=== PATIENT | female | born 1955 | race Caucasian/White ===

== ENCOUNTER 2017-06-30 10:14 | Inpatient (IN) ==
--- NOTE | 2017-06-30 10:32 | Emergency Department Report ---
General Adult HPI - General Stated complaint: pos broken left foot Time Seen by Provider: 06/30/17 10:21 Source: patient Mode of arrival: ambulatory Limitations: no limitations - History of Present Illness HPI narrative: 62-year-old female presents to the emergency department with the chief complaints of two falls secondary to lightheadedness. The 1st was yesterday evening and the 2nd was earlier this morning. Patient notes that she injured her right foot during her last fall. She denies striking her head, loss of consciousness or neck pain. She denies any other injuries. She notes a moderate dull aching discomfort over the top of the right foot. No radiation. Pain increases with ambulation and improves with rest and positioning. She also noted improvement of symptoms with increasing oral hydration. She was at home when her symptoms began. Symptoms have been persistent in nature since onset. No other complaints or associated symptoms. - Related Data Home Medications Medication Instructions Recorded Confirmed Azelastine HCl [Astepro] 1 spray NS QID PRN 06/30/17 06/30/17 CALCIUM CITRATE 315mg + D 2 tab PO DAILY 06/30/17 06/30/17 [Citrical + D] Candesartan Cilexetil [Atacand] 32 mg PO DAILY 06/30/17 06/30/17 Carvedilol Phosphate [Coreg Cr] 20 mg PO DAILY 06/30/17 06/30/17 Cetirizine HCl [Zyrtec] 10 mg PO DAILY 06/30/17 06/30/17 Cholecalciferol (Vitamin D3) 2,000 unit PO DAILY 06/30/17 06/30/17 [Vitamin D3] Fluticasone HFA [Flovent Hfa 220 1 puff INH BID PRN 06/30/17 06/30/17 mcg] Fluticasone Nasal [place] [Flonase] 1 spray EA NOSTRIL BID PRN 06/30/17 06/30/17 LORazepam [Ativan] 1 mg PO PRN PRN 06/30/17 06/30/17 Cornell-3/Dha/Epa/Fish Oil [Fish Oil 3,000 mg PO DAILY 06/30/17 06/30/17 1,000 mg Softgel] Omeprazole [Prilosec] 40 mg PO ACB 06/30/17 06/30/17 Potassium Chloride 10 meq PO DAILY 06/30/17 06/30/17 Simvastatin [Zocor] 20 mg PO HS 06/30/17 06/30/17 Spironolactone [Aldactone] 25 mg PO DAILY 06/30/17 06/30/17 Ubidecarenone [Co Q-10] 200 mg PO DAILY 06/30/17 06/30/17 hydroCHLOROthiazide 25 mg PO DAILY 06/30/17 06/30/17 [Hydrochlorothiazide] Allergies Allergy/AdvReac Type Severity Reaction Status Date / Time ampicillin Allergy Verified 06/30/17 10:35 cefadroxil [From Duricef] Allergy Verified 06/30/17 10:35 chloramphenicol Allergy Verified 06/30/17 10:35 [From Chloromycetin] Penicillins Allergy Verified 06/30/17 10:35 Sulfa (Sulfonamide Allergy Verified 06/30/17 10:35 Antibiotics) Review of Systems Constitutional: Reports: fever (subjective). Denies: chills Eyes: Denies: eye pain, vision change ENT: Denies: ear pain, throat pain Cardiovascular: Denies: chest pain, palpitations Respiratory: Denies: cough, dyspnea Gastrointestinal: Denies: abdominal pain, nausea, vomiting, diarrhea Genitourinary: Denies: urgency, dysuria Musculoskeletal: Denies: back pain, arthralgia Integumentary: Denies: erythema, rash Neurological: Denies: headache, weakness, numbness, paresthesias Psychiatric: Denies: anxiety, depression Endocrine: Denies: polydipsia, polyuria Hematological/Lymphatic: Denies: easy bruising, lymphadenopathy Allergic/Immunologic: Denies: facial swelling, urticaria PFSH Patient Stated Medical History Congestive Heart Failure Yes Hypertension Yes Asthma Yes Bronchitis Yes Gastroesophageal Reflux Yes Disease Hiatal Hernia Yes Hx Urinary Tract Infection Yes Other Musculoskeletal Yes: arthritis Anesthesia Reactions Yes: nausea Clinic Medical History (Last Updated 06/30/17 @ 14:59 by EDDIE Bettencourt) History of gastroesophageal reflux (GERD) (Resolved Medical) Chronic bronchitis (Chronic Medical) Essential hypertension (Chronic Medical) Hypertension, GERD, hypertension, hyperlipidemia, anxiety Surgical History: Tonsillectomy Family History: Family History (Last Updated 06/30/17 @ 15:34 by Bettina Staples MD) Mother Intracranial hemorrhage following injury High blood pressure Coronary artery disease Father Stroke CHF (congestive heart failure) Reviewed and noncontributory - Social History Smoking status: Never smoker Substance use type: does not use Alcohol intake frequency: does not drink Physical Exam - Limitations Limitations: no limitations - General General appearance: alert, in no apparent distress - Normal Exams: Head:: Normocephalic without trauma Eyes:: Pupils are PERRLA w/ EOMI, No scleral icterus, irritation, or foreign bodies noted ENMT:: No facial trauma, nasal exudates, pharyngeal erythema, or exudates are noted Dental: No fractured, loose, or missing teeth noted Neck:: Full range of motion, without adenopathy, JVD, bruits or thyromegaly Chest/Respirations:: Clear all reyna, with good airflow, and symmetry bilaterally Cardiovascular:: Regular rate and rhythm, without murmur or gallop, Pulses 2+ all extremities, capillary refill, <2 seconds all extremities Abdomen:: Bowel sounds positive, soft, non-tender, non-distended, no hepatosplenomegaly, masses or bruits noted (NO CVAT.) Lymphatic:: No lymphadenopathy, or lymphedema noted Musculoskeletal:: No tenderness (L FOOT - FROM. Generalized tenderness to palpation over the dorsum of foot. Pulses intact. Sensation intact. Capillary refill was 2. Skin intact. No erythema. No edema. No other tenderness in the left lower extremity. All other extremities are unremarkable. ), or deformity noted (no midline tenderness or deformity to the cervical/ thoracic/lumbar spine. Pelvis - stable to compression and nontender.), good range of motion, all extremities Integumentary:: No rashes, hives, or bruising noted, hair and nails, without abnormality Neurological:: Patient is alert, and oriented, cranial nerves, motor/sensory/ cerebellar, exams w/o gross deficits, to observation Psychiatric:: Patient exhibits, appropriate attention, emotion and affect Course Vital Signs Temperature 98.5 F 06/30/17 10:15 Pulse Rate 74 06/30/17 10:15 Respiratory Rate 20 06/30/17 10:15 Blood Pressure 96/57 06/30/17 10:15 Pulse Oximetry 99 06/30/17 10:15 Temperature 102.0 F H 06/30/17 16:15 Pulse Rate 83 06/30/17 13:31 Respiratory Rate 20 06/30/17 13:31 Blood Pressure 129/65 06/30/17 13:31 Pulse Oximetry 99 06/30/17 13:31 Medical Decision Making - MDM Narrative Medical decision making narrative: Labs/imaging was discussed in detail with the patient and family and questions are answered. Patient declines offered analgesic pain medication in the emergency department. She is given normal saline 500 mL intravenously times one. Patient is ordered Cipro 400 mg IV 1 at 1243 when sepsis was considered. Patient was discussed with Dr. Staples and will be admitted to the service of the hospitalist in improved condition. No further orders from accepting physician is in agreement with the current plan of management. Patient is admitted to the hospital improved condition. She was given Cipro 400 mg iv x 1 at 1243 when labs were reviewed and sepsis was considered. She was never hypotensive in the ED and her lactate was < 4.0. She was placed in a postoperative shoe by the RN with good alignment. She was distal neurovascularly intact post-application of shoe. - Differential Diagnosis sprain, strain, fracture, dislocation - Lab Data Result diagrams: 06/30/17 11:13 06/30/17 11:13 Lab Results 06/30/17 06/30/17 06/30/17 Range/Units 11:13 11:13 11:13 WBC 18.5 H (4.5-11.0) T/MM3 RBC 3.36 L (4.00-5.20) M/MM3 Hgb 10.1 L (12-16) GM/DL Hct 29.7 L (36-46) % MCV 88.4 (80-100) UM3 MCH 30.1 (26-34) UUG MCHC 34.0 (31-37) GM/DL RDW Std Deviation 38.4 (36.9-50.2) FL Plt Count 211 (130-400) T/MM3 MPV 9.0 L (9.4-12.4) UM3 Immature Gran % (Auto) Not performed Neut % (Auto) Not performed Lymph % (Auto) Not performed Collier % (Auto) Not performed Eos % (Auto) Not performed Baso % (Auto) Not performed Neut # (Auto) Not performed Lymph # (Auto) Not performed Collier # (Auto) Not performed Eos # (Auto) Not performed Baso # (Auto) Not performed Abs Immat Gran (auto) Not performed Neutrophils % (Manual) 81.0 H (33-66) % Band Neutrophils % 4.0 (0-6) % Lymphocytes % (Manual) 7.0 L (23-45) % Monocytes % (Manual) 8.0 (0-9.0) % Neutrophils # (Manual) 15.0 H (1.8-7.7) T/MM3 Band Neutrophils # 0.7 T/MM3 Lymphocytes # (Manual) 1.3 (1-4.8) T/MM3 Monocytes # (Manual) 1.5 H (0-0.8) T/MM3 Poikilocytosis 1+ RBC Morph Comment Abnormal Turbidity < 20 (0-20) Sodium 124 L (134-144) MEQ/L Potassium 5.0 (3.6-5) MEQ/L Chloride 87 L (98-107) MEQ/L Carbon Dioxide 23 (22-30) MEQ/L Anion Gap 14 (5-15) meq/L BUN 21.0 H (7-17) MG/DL Creatinine 1.5 H (0.7-1.2) mg/dL GFR Calculation 35 BUN/Creatinine Ratio 14 (6-26) RATIO Glucose 151 H (65-110) MG/DL Calculated Osmolality 246 L (261-280) MOSM/KG Calcium 9.0 (8.4-10.2) MG/DL Icterus Index < 2 (0-7) Troponin I < 0.012 (0-0.12) ng/ml Plasma Lactate 2.6 H (0.6-2.2) MMOL/L Procalcitonin NG/ML Specimen Hemolysis < 15 (0-25) Ur Collection Type Urine Color (YELLOW) Urine Clarity Urine pH (5.0-8.0) Ur Specific [place] (1.015-1.025) Urine Protein (NEGATIVE) Urine Glucose (UA) (NEGATIVE) Urine Ketones (NEGATIVE) Urine Occult Blood (NEGATIVE) Urine Nitrate (NEGATIVE) Urine Bilirubin (NEGATIVE) Urine Urobilinogen (NORMAL) EU/DL Ur Leukocyte Esterase (NEGATIVE) Urine RBC (0-3) /HPF Urine WBC (0-5) /HPF Urine WBC Clumps Ur Squamous Epith Cells Urine Bacteria (NEGATIVE) Ur Culture Indicated? 06/30/17 06/30/17 Range/Units 11:13 12:04 WBC (4.5-11.0) T/MM3 RBC (4.00-5.20) M/MM3 Hgb (12-16) GM/DL Hct (36-46) % MCV (80-100) UM3 MCH (26-34) UUG MCHC (31-37) GM/DL RDW Std Deviation (36.9-50.2) FL Plt Count (130-400) T/MM3 MPV (9.4-12.4) UM3 Immature Gran % (Auto) Neut % (Auto) Lymph % (Auto) Collier % (Auto) Eos % (Auto) Baso % (Auto) Neut # (Auto) Lymph # (Auto) Collier # (Auto) Eos # (Auto) Baso # (Auto) Abs Immat Gran (auto) Neutrophils % (Manual) (33-66) % Band Neutrophils % (0-6) % Lymphocytes % (Manual) (23-45) % Monocytes % (Manual) (0-9.0) % Neutrophils # (Manual) (1.8-7.7) T/MM3 Band Neutrophils # T/MM3 Lymphocytes # (Manual) (1-4.8) T/MM3 Monocytes # (Manual) (0-0.8) T/MM3 Poikilocytosis RBC Morph Comment Turbidity (0-20) Sodium (134-144) MEQ/L Potassium (3.6-5) MEQ/L Chloride (98-107) MEQ/L Carbon Dioxide (22-30) MEQ/L Anion Gap (5-15) meq/L BUN (7-17) MG/DL Creatinine (0.7-1.2) mg/dL GFR Calculation BUN/Creatinine Ratio (6-26) RATIO Glucose (65-110) MG/DL Calculated Osmolality (261-280) MOSM/KG Calcium (8.4-10.2) MG/DL Icterus Index (0-7) Troponin I (0-0.12) ng/ml Plasma Lactate (0.6-2.2) MMOL/L Procalcitonin 8.00 H* NG/ML Specimen Hemolysis (0-25) Ur Collection Type Urine, void-cc/notcc Urine Color Yellow (YELLOW) Urine Clarity Sl cloudy Urine pH 5.5 (5.0-8.0) Ur Specific [place] 1.015 (1.015-1.025) Urine Protein 1+ A (NEGATIVE) Urine Glucose (UA) Negative (NEGATIVE) Urine Ketones Negative (NEGATIVE) Urine Occult Blood Negative (NEGATIVE) Urine Nitrate Negative (NEGATIVE) Urine Bilirubin Negative (NEGATIVE) Urine Urobilinogen 0.2 (NORMAL) EU/DL Ur Leukocyte Esterase 2+ A (NEGATIVE) Urine RBC None seen (0-3) /HPF Urine WBC 20-30 H (0-5) /HPF Urine WBC Clumps Moderate H Ur Squamous Epith Cells 0-5 Urine Bacteria 3+ H (NEGATIVE) Ur Culture Indicated? Cult reflexed &setup - Radiology Data Radiology results reviewed: Yes: I reviewed the patient's radiology results. L FOOT X-ray - Impression: Closed posttraumatic fracture of the fifth toe proximal phalanx. CXR - No acute processes. - EKG Data EKG #1 EKG results narrative: Sinus rhythm. 72 beat per minute. No STEMI. Normal EKG Disposition Clinical Impression: UTI (urinary tract infection) Qualifiers: Urinary tract infection type: acute cystitis Hematuria presence: without hematuria Qualified Code(s): N30.00 - Acute cystitis without hematuria Disposition: 02 To [facility] Condition: Stable Time of Disposition: 12:30 (Admit. Dr. Staples. ) - Seen By: physician
--- OUTSIDE RECORDS SUMMARY | 2017-06-30 10:36 | External Medical Summary | Continuity of Care Document ---
:1955 Author Organization [facility]. Address [address] [place] [address] Care Team Providers Name Role Phone DENISE BOYER Primary Care Physician Insurance Providers Payer Name Policy Number Subscriber Name Relationship [id number] SUSANNAH [employer] Chief Complaint and Reason for Visit Reason for Visit SURGERY TO INPATIENT Problems Active Surgical Problems Problem Onset Date Recorded Date Status Status post Shantel fundoplication Unknown 10/02/16 Active Medications Current Home Medications Medication Dose Units Route Directions Days/Qty Instructions Start Date Albuterol (ProAir 2 PUFF INHALATION Every four HFA) 90 MCG/PUFF hours as INHALER needed as needed for SHORTNESS OF BREATH Ascorbic Acid 1,000 MG Once a day (Vitamin C) 1,000 MG TABLET Azelastine (Astelin 1 SPRAY NASAL Twice daily Nasal [place]) 137 MCG/0.137 ML SPRAY.PUMP Calcium 2 TAB By Mouth Once a day Citrate/Vitamin D (Calcium Citrate + D 315 Mg-200 Iu) 1 TAB TABLET Candesartan (Atacand) 32 MG By Mouth Daily at 32 MG TABLET bedtime Carvedilol CR (Coreg 20 MG By Mouth Daily at CR) 20 MG CAPSULE bedtime Cetirizine (ZyrTEC) 10 MG By Mouth Daily at 10 MG TABLET bedtime Cholecalciferol 2,000 UNITS Once a day (Vitamin D3) 2,000 UNITS CAPSULE Coenzyme Q10 (Co 200 MG By Mouth Once a day Q-10) 200 MG SGL Cyanocobalamin 5,000 MCG By Mouth Once a day (Vitamin B12) 5,000 MCG TAB Diclofenac (Voltaren 1 APPLIC TOPICAL Four times a APPLIES TO 1% Topical Gel) 100 day BACK AND GM TUBE KNEES Fluticasone 1 SPRAY NASAL Once a day 1 Propionate (Flonase [place]/Nostril Allergy Relief [OTC]) 50 MCG/SPRAY BOTTLE Fluticasone 1 PUFF INHALATION Twice daily Propionate (Flovent HFA) 220 MCG/ACTUATION INHALER LORazepam (Ativan) 1 0.5 TAB By Mouth BID PRN as MG TABLET needed for ANXIETY Lactobacillus 1 EACH Once a day Acidophilus (Acidophilus) 1 EACH CAPSULE Magnesium Oxide 500 MG By Mouth Once a day (Magnesium) 500 MG TAB Multivitamin (Multi 1 TAB By Mouth Once a day Vitamins) 1 TAB TABLET [id number] Ethyl 1,000 MG By Mouth Three times Esters (Fish Oil) daily 1,000 MG CAPSULE Omeprazole (PriLOSEC) 40 MG By Mouth Once a day 20 MG CAPSULE Potassium Chloride 10 MEQ Once a day (K-Tab) 10 MEQ TABLET.SA Pyridoxine (Vitamin 100 MG Once a day B-6) 100 MG TABLET Simvastatin (Zocor) 20 MG By Mouth Daily at 20 MG TABLET bedtime Spironolactone 25 MG By Mouth Daily at (Aldactone) 25 MG bedtime TABLET hydroCHLOROthiazide 25 MG By Mouth Daily at (Hydrodiuril) 25 MG bedtime TABLET Past Home Medications Medication Directions Ordered Status Omeprazole (Prilosec Otc) 20 Mg Tablet Tablet, 20 Mg Twice daily Unknown Discontinued Family History Relationship Name Date of Condition Age ( Cause Age ( Age Gender Recorded At of At Date/Time Onset ) ) FATHER Family history of 30-40 M 10/01/16 cerebrovascular 2126 accident FATHER Family history of M 10/01/16 congestive heart 2126 failure MOTHER Family history of F 10/01/16 hypertension 2126 Social History Problem Response Recorded Date 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 Query Response Start Date Stop Date Smoking status: Never smoker Hospital Discharge Instructions Plan of Care Problem: Pain Goal: minimize pain Instructions: Take pain meds as prescribed Physician Instructions Follow up appointment in 1 week Activity Guidelines May shower, No lifting 20 lbs or more, No pushing 20 lbs or more, No pulling 20 lbs or more Discharge Diet Pureed Plan of Care Discharge Date 10/02/16 Disposition 01-HOME, SELF-CARE,AS[facility] LIVING Instructions/Education Provided Medication Safety Oxycodone Fundoplication, Laparoscopic Surgery (DC) Hiatal Hernia (DC) Pureed Diet Prescriptions See Medications Section Care Plan and Goals See Discharge Instructions section Functional Status Query Response Date Recorded Paralysis: N October 02, 2016 7:32am Steady Gait: Y October 02, 2016 7:32am Weakness: N October 02, 2016 7:32am Hand Bioinformatics Assistant Equal: Y October 02, 2016 7:32am Contractures: N October 02, 2016 7:32am Alert: Y October 02, 2016 7:32am Oriented x4: Y October 02, 2016 7:32am Disoriented/Confused: N October 02, 2016 7:32am Drowsy: N October 02, 2016 7:32am Lethargic: N October 02, 2016 7:32am Unresponsive: N October 02, 2016 7:32am Allergies, Adverse Reactions, Alerts Allergen Type Severity Reaction Status Last Updated Penicillins Allergy Severe Active 10/01/16 Sulfa (Sulfonamide Antibiotics) Allergy Unknown Active 10/01/16 ampicillin Allergy Unknown Active 10/01/16 cefadroxil Allergy Unknown Active 10/01/16 CHLOROMYST OPTHA ANDREW-HÉCTOR Allergy Unknown Active 10/01/16 Immunizations No Known History of Immunizations. Vital Signs Vital Reading Collection Date/Time Result Blood Pressure 10/02/16 1:14pm 129/78 Blood Pressure Source 10/02/16 1:14pm Sitting Temperature 10/02/16 1:14pm 97.2 F Temperature Source 10/02/16 1:14pm Oral Respiratory Rate 10/02/16 1:14pm 18 Pulse Rate 10/02/16 1:14pm 67 Pulse Location 10/02/16 1:14pm Dynamap Bedside Pulse Oximetry 10/02/16 1:14pm 98 Height 10/01/16 4:32pm 5 ft 7.01 in Height 10/01/16 4:32pm 170.2 cm Weight 10/01/16 4:32pm 177 lb Weight 10/01/16 4:32pm 80.3 kg Body Mass Index 10/01/16 4:32pm 27.7 kg/m2 Results No known relevant diagnostic tests, laboratory data and/or discharge summary. Procedures No Known History of Procedures. Encounters Encounter Location Arrival/Admit Date Discharge/Depart Date Attending Provider Discharged [facility] 10/01/16 6:30am 10/02/16 5:36pm [facility]
[2017-06-30] MEDS ORDERED: SALINE FLUSH 10ml SYRINGE IVF PRN (10:48)
--- NOTE | 2017-06-30 11:09 | XRay Report ---
Indication: Injury, Pain PROCEDURE: XR foot LT min 3V: Encounter: Initial Comparison: None Findings: Mildly displaced intra-articular fracture of the base of the fifth toe proximal phalanx. No additional acute fracture. No dislocation. Impression: Closed posttraumatic fracture of the fifth toe proximal phalanx. .
--- NOTE | 2017-06-30 12:18 | XRay Report ---
Indication: light-headed PROCEDURE: XR chest 1V: Encounter: Initial Comparison: None FINDINGS: The lungs are clear. There is no abnormal airspace opacity, pleural effusion or pneumothorax identified. The heart size, pulmonary vasculature and mediastinum are within normal limits. No significant skeletal abnormality is seen. IMPRESSION: No acute cardiopulmonary abnormality. .
[2017-06-30] MEDS: ACETAMINOPHEN 325 MG TABLET PO PRN ×2 (14:03→21:12)
--- NOTE | 2017-06-30 14:08 | History & Physical Report ---
History of Present Illness Date: 06/30/17 Chief complaint: chills, fever HPI: Patient is a 62 yo female who presents to ER today after sustaining 2 falls from being lightheaded and hurting her L foot. She states she feels like she has "the flu." Sxs started 2 days ago with aching and fever and nausea. She's had no vomiting or diarrhea. On admission to ER, she was found to have a WBC of 18.5, lactate of 2.6 and procal of 8. CXR was neg. UA showed 2+ leuks and 3 + bacteria. Xray of the L foot also showed an intra-articular fracture for which she was placed in a cast shoe in ER. She felt like she was just dehydrated due to the "flu" and taking 2 diuretics. She has h/o UTI's in past, but never pyelonephritis or urosepsis. She hasn't been treated with antibiotics in the past 3+ mos. THinks she may have been on Zithromax or Levquin in Dec for her chronic bronchitis. She's had no dysuria, hematuria or frequency. She does note she had some hesitancy with starting her urine stream. Last BM was this morning. She states she is hungry now and would like to eat. Last Tylenol at 1230am. Review of Systems All systems PM: 10-point ROS was reviewed, no additional remarkable complaints except Review of systems: Positive for nausea (but not presently), shaking chills, lightheaded when up Past Medical History Medical History: Medical History (Last Updated 06/30/17 @ 14:59 by EDDIE Bettencourt) History of gastroesophageal reflux (GERD) (Resolved) Chronic bronchitis (Chronic) Essential hypertension (Chronic) Surgical History: Tonsillectomy, Shantel fundoplication, L knee arthroscope for meniscal tear Family History: Father - of CVA. CHF Mother - of intracranial bleed following a fall while on Plavix. CAD ( CABG and stents), HTN Family History: As Above - Social History Smoking status: Never smoker Substance use type: does not use Alcohol intake frequency: does not drink Housing: house Household members: spouse Current occupational status: retired Social history: Patient lives in her home here in [place] during the week and cares for her grandchildren. She and her still own a house in [place] and she goes back there on the weekends. SHe has no local PCP. Sees Miriam Dale APRN at [facility] in . Medications Home Medications Medication Instructions Recorded Confirmed Type Azelastine HCl [Astepro] 1 spray NS QID PRN 06/30/17 06/30/17 History CALCIUM CITRATE 315mg + D 2 tab PO DAILY 06/30/17 06/30/17 History [Citrical + D] Candesartan Cilexetil [Atacand] 32 mg PO DAILY 06/30/17 06/30/17 History Carvedilol Phosphate [Coreg Cr] 20 mg PO DAILY 06/30/17 06/30/17 History Cetirizine HCl [Zyrtec] 10 mg PO DAILY 06/30/17 06/30/17 History Cholecalciferol (Vitamin D3) 2,000 unit PO DAILY 06/30/17 06/30/17 History [Vitamin D3] Fluticasone HFA [Flovent Hfa 220 1 puff INH BID PRN 06/30/17 06/30/17 History mcg] Fluticasone Nasal [place] [Flonase] 1 spray EA NOSTRIL BID PRN 06/30/17 06/30/17 History LORazepam [Ativan] 1 mg PO PRN PRN 06/30/17 06/30/17 History [place]-3/Dha/Epa/Fish Oil [Fish Oil 3,000 mg PO DAILY 06/30/17 06/30/17 History 1,000 mg Softgel] Omeprazole [Prilosec] 40 mg PO ACB 06/30/17 06/30/17 History Potassium Chloride 10 meq PO DAILY 06/30/17 06/30/17 History Simvastatin [Zocor] 20 mg PO HS 06/30/17 06/30/17 History Spironolactone [Aldactone] 25 mg PO DAILY 06/30/17 06/30/17 History Ubidecarenone [Co Q-10] 200 mg PO DAILY 06/30/17 06/30/17 History hydroCHLOROthiazide 25 mg PO DAILY 06/30/17 06/30/17 History [Hydrochlorothiazide] Allergies Allergy/AdvReac Type Severity Reaction Status Date / Time ampicillin Allergy Verified 06/30/17 10:35 cefadroxil [From Duricef] Allergy Verified 06/30/17 10:35 chloramphenicol Allergy Verified 06/30/17 10:35 [From Chloromycetin] Penicillins Allergy Verified 06/30/17 10:35 Sulfa (Sulfonamide Allergy Verified 06/30/17 10:35 Antibiotics) Exam Vital Signs: Temperature 97.7 F 06/30/17 13:31 Pulse Rate 83 06/30/17 13:31 Respiratory Rate 20 06/30/17 13:31 Blood Pressure 129/65 06/30/17 13:31 Pulse Oximetry 99 06/30/17 13:31 Height/Weight/BMI: Height 1.7 m Weight 77.6 kg Body Mass Index 26.8 - Constitutional Present: no acute distress, well nourished, well developed, cooperative, other ( pt shivers throughout interview and exam) - Routine HEENT Exam Head: Present: normocephalic, atraumatic Eye: Present: EOMI, PERRL ENT: Present: mucous membranes moist, oropharynx clear - Routine Neck Exam Present: supple. Absent: lymphadenopathy, thyromegaly - Routine Respiratory Exam Present: CTA bilaterally. Absent: wheezes - Routine Cardiovascular Exam Present: RRR, no murmur - Routine Abdominal Exam Present: soft, normoactive bowel sounds. Absent: tenderness, distended Comments: NO flank pain - Routine Extremities Exam Present: no edema, normal capillary refill Comments: L foot is in cast shoe. She has sensation in the toes. - Routine Skin Exam Present: dry, warm - Routine Neurological Exam Present: alert, oriented X3 CN III-XII intact - Routine Psychiatric Exam Present: normal affect, cooperative Results - Labs CBC & Chem 7: 06/30/17 11:13 06/30/17 11:13 Labs: Laboratory Tests 06/30/17 06/30/17 06/30/17 11:13 11:13 11:13 Troponin I < 0.012 Plasma Lactate 2.6 H Procalcitonin 8.00 H* Urinalysis 06/30/17 12:04 Ur Collection Type Urine, void-cc/notcc Urine Color Yellow Urine Clarity Sl cloudy Urine pH 5.5 Ur Specific [place] 1.015 Urine Protein 1+ A Urine Glucose (UA) Negative Urine Ketones Negative Urine Occult Blood Negative Urine Nitrate Negative Urine Bilirubin Negative Urine Urobilinogen 0.2 Ur Leukocyte Esterase 2+ A Urine RBC None seen Urine WBC 20-30 H Urine WBC Clumps Moderate H Ur Squamous Epith Cells 0-5 Urine Bacteria 3+ H - Imaging and Cardiology Chest x-ray Additional comments: Date of Exam: 06/30/17 Indication: light-headed PROCEDURE: XR chest 1V: FINDINGS: The lungs are clear. There is no abnormal airspace opacity, pleural effusion or pneumothorax identified. The heart size, pulmonary vasculature and mediastinum are within normal limits. No significant skeletal abnormality is seen. IMPRESSION: No acute cardiopulmonary abnormality. L foot xray Additional comments: Date of Exam: 06/30/17 Indication: Injury, Pain PROCEDURE: XR foot LT min 3V: Findings: Mildly displaced intra-articular fracture of the base of the fifth toe proximal phalanx. No additional acute fracture. No dislocation. Impression: Closed posttraumatic fracture of the fifth toe proximal phalanx. Assessment and Plan (1) Severe sepsis Current visit: Yes Status: Acute Assessment and Plan: Assessment Urosepsis (SIRS: Tmax 102 -per patient, WBC 18.5. Lactate 2.6. Urinary source of infection.) Mildly displaced intra-articular fracture base of 5th toe (proximal phalanx) LASHAUN (Cr 1.5, BUN 21 - on admission) Hypotensive (96/57 on admission) Hyponatremia - POA 124 Normocytic anemia - POA (Hgb 10.1) Nausea - POA HTN Chronic bronchitis H/o GERD (s/p Shantel fundoplication) Plan Admit, OBS Cipro IV given in ER. Repeat Cipro again this evening and then start Levaquin 750mg IV qd in the am for urinary coverage. Urine culture pending. Repeat lactate ordered. Lactobacillus given her antibiotic tx and pt reports she usually has diarrhea if she doesn't take her probiotics routinely. NS 500cc bolus given in ER. Bolus another 500cc then run at 125cc's/hr for hydration, hypotension, sepsis and LASHAUN. Ice to toe fracture as needed. Wear cast shoe when ambulating. Zofran prn nausea. Tylenol prn fever, pain. Hold Atacand, Coreg, HCTZ, spironolactone, potassium and Zocor d/t hypotension and hyponatremia. Monitor BP's closely. Repeat CBC and BMP in am to follow leukocytosis, renal function and electrolytes. Care to return to Miriam Dale APRN at [facility] in on dismissal. DVT Prophylaxis: SCD's, Lovenox Resuscitation Status: Full Code - Physician Narrative Physician: Bettina Staples MD Narrative: Date: 06/30/17 Time: 1540 I have independently evaluated and examined this patient. I reviewed the chart, the patient's history, and the [employer] SPECIALIST/PA's documented findings as above. We discussed and formulated the assessment and plan as above with additions as below: Mrs. Rios was seen with her daughter at bedside. She describes having the "flu " for about 3 days with generalized muscle aches and temperatures up to 102. There was no accompanying dyspnea, cough, nausea/vomiting, or diarrhea. She describes minor discomfort urinating but no frequency or urgency. She has had progressive lightheadedness resulting in fall which triggered ER evaluation. Patient had some difficulty providing history when I evaluated her and daughter indicated that she currently is having trouble tracking which was not clear earlier today. Mildly confused. Neck is supple, oropharynx clear, conjunctiva clear. Patient warm to palpation- temperature rechecked 102.9 Respirations nonlabored, good airflow, breath sounds clear Regular cardiac rhythm, S1-S2 Abdomen soft, nontender, no discomfort on deep palpation in the right upper quadrant Mild discomfort on percussion over the left flank Skin without rash Sodium 124-patient reports chronic difficulty managing sodium and that she takes sodium tablets in conjunction with HCTZ. Also reports difficulty managing her potassium at times. Leukocytosis as noted, creatinine 1.5 Chest x-ray reviewed by myself-NAD. Foot x-ray reported to show a mildly displaced intra-articular fracture at the base of the fifth toe proximal phalanx. In addition to previously outlined plans will obtain renal CT to better evaluate kidneys/assess possible pyelonephritis. Symptomatic hyponatremia with generalized weakness/fatigue-best managed by discontinuing hydrochlorothiazide and reassessing blood pressure control when clinically stable. Check sodium in 6 hours. Leonid this patient's alternate decision maker. Case discussed with Dr. Santillan prior to admission. Sepsis Assessment - Evaluation SIRS Criteria: temperature > 100.9, WBC > 12,000 Severe Sepsis: lactate > 2.0 mg/dL Hospital Course Summary Disclaimer: The visit summary below is not to be considered part of the above Progress Note. Hospital Course: 06/30/17 Admit, OBS Cipro IV given in ER. Repeat Cipro again this evening and then start Levaquin 750mg IV qd in the am for urinary coverage. Lactobacillus given her antibiotic tx and pt reports she usually has diarrhea if she doesn't take her probiotics routinely. NS 500cc bolus given in ER. Bolus another 500cc then run at 125cc's/hr for hydration, hypotension, sepsis and LASHAUN. Obtain renal CT to look for evidence of pyelonephritis. Ice to toe fracture as needed. Wear cast shoe when ambulating. Zofran prn nausea. Tylenol prn fever, pain. Hold Atacand, Coreg, HCTZ, spironolactone, potassium and Zocor d/t hypotension and hyponatremia. Monitor BP's closely. Repeat CBC and BMP in am to follow leukocytosis, renal function and electrolytes. Care to return to Miriam Dale APRN at [facility] in on dismissal.
[2017-06-30] MEDS ORDERED: SALINE FLUSH 10ml SYRINGE IV PRN (14:14)
[2017-06-30] MEDS ORDERED: ONDANSETRON 4 MG/2 ML INJECTION IVP PRN (14:14)
[2017-06-30] MEDS ORDERED: NS 500 ML IV ONE (14:41)
[2017-06-30] MEDS ORDERED: FLUTICASONE 220 MCG ORAL INH PRN (14:45)
[2017-06-30] MEDS ORDERED: LORazepam 1 MG TABLET PO PRN (14:45)
[2017-06-30] MEDS ORDERED: FLUTICASONE NASAL SPRAY 50mcg EA NOSTRIL PRN (14:45)
[2017-06-30] MEDS: NS 1,000 ML IV SCH ×3 (14:52→22:47)
[2017-06-30] MEDS ORDERED: IBUPROFEN 200 MG TABLET PO ONE (15:23)
[2017-06-30] MEDS: LACTOBACILLUS (15B cfu) CAPSULE PO SCH (17:20)
--- NOTE | 2017-06-30 18:00 | CT Scan Report ---
Indication: fever, possible pyelo-L side clinically PROCEDURE: CT renal wo con (stone jairo): Encounter: Initial Comparison: None Technique: Axial CT images were performed through the abdomen and pelvis without intravenous contrast. Coronal and sagittal two-dimensional reformats. Automated Exposure Control and Iterative Reconstruction dose reducing techniques were utilized. Findings: Minimal atelectasis in the lung bases. Unenhanced contours of the liver are grossly normal. The gallbladder is unremarkable. The spleen, pancreas and adrenal glands are within normal limits. The right kidney is normal. No right-sided renal or ureteral stones. The bladder appears normal. Small fat-containing right inguinal hernia. Uterus contains a prominent calcified fibroid. Small amount of free pelvic fluid. No evidence of a bowel obstruction. Extensive left colonic diverticulosis without acute inflammation to suggest diverticulitis. The appendix is normal. Bone windows show degenerative changes in the lumbar spine without lytic or blastic osseous lesion. The left kidney shows perinephric stranding, asymmetric to the right side with inflammatory change around the left hilum and renal pelvis with probable urothelial thickening. No left-sided ureteral stones appreciated. Impression: Asymmetric left-sided perinephric and periureteral stranding compatible with pyelonephritis. .
[2017-07-01] MEDS: NS 1,000 ML IV SCH ×4 (05:16→22:55)
[2017-07-01] MEDS: ACETAMINOPHEN 325 MG TABLET PO PRN ×3 (05:25→20:18)
[2017-07-01] MEDS: OMEPRAZOLE 20 MG CAPSULE PO SCH (06:15)
[2017-07-01] MEDS ORDERED: LEVOFLOXACIN PB 750 MG/150 ML BAG IV SCH (08:00)
[2017-07-01] MEDS: LACTOBACILLUS (15B cfu) CAPSULE PO SCH ×3 (09:41→17:02)
[2017-07-01] MEDS: CALCIUM CITRATE 315mg + VIT.D 250units TABLET PO SCH (09:42)
[2017-07-01] MEDS: CETIRIZINE 10 MG TABLET PO SCH (09:42)
[2017-07-01] MEDS: ENOXAPARIN 40 MG/0.4 ML INJECTION SQ SCH (09:43)
[2017-07-01] MEDS: OMEGA-3 ACID ESTERS 1 GM CAPSULE PO SCH (09:43)
[2017-07-01] MEDS ORDERED: ALBUTEROL 2.5mg/3ml (0.083%) NEB AEROSOL PRN (11:09)
--- NOTE | 2017-07-01 13:55 | Progress Note ---
- Date 07/01/17 Subjective: Mrs. Rios reports that overall she feels better. Her primary concern is that she cannot walk comfortably and that when she puts weight on her left heel she has pain on the dorsal left mid foot. She's concerned that she has another fracture that wasn't identified yesterday. She denies dysuria today and has been voiding regularly, she denies lightheadedness when she is up although systolic pressure continues to drop into the mid or upper 80s. She reports no dyspnea, cough, or nausea and reports having a bowel movement this morning. She has minor back pain which is chronic. Her appetite has not returned to normal. Objective Vital signs: Temperature 97.8 F 07/01/17 07:52 Pulse Rate 82 07/01/17 10:34 Respiratory Rate 16 07/01/17 07:52 Blood Pressure 83/55 07/01/17 10:34 Pulse Oximetry 99 07/01/17 07:52 I/O 3900/1000 NAD, alert EOMI, conjunctiva clear, sclera anicteric, oropharynx clear Respirations nonlabored, good airflow, breath sounds clear Regular rhythm, S1-S2 Abdomen soft, nontender, bowel sounds present; mild left CVAT Trace edema dorsal left foot, generalized tenderness to palpation along the dorsal left foot Skin without rash Moving all extremities well Height/Weight/BMI: Weight 82.2 kg Results - Labs CBC & Chem 7: 07/01/17 04:05 07/01/17 04:05 Labs: Urine sodium 17, urine creatinine 102.7; urine osmolality pending Fractional excretion sodium 0.21% Microbiology Results: Blood cultures 2 negative after 1 day Urine culture > 100,000 colonies Escherichia coli, sensitivities pending - Imaging and Cardiology renal CT Status: image reviewed by me (left perinephric and periureteral stranding consistent with pyelonephritis; lungs are clear, gallbladder unremarkable. Radiology incidentally reported a small right inguinal hernia, calcified uterine fibroid, and extensive left diverticulosis without diverticulitis.) Assessment and Plan (1) Severe sepsis Current visit: Yes Status: Acute Assessment and Plan: Assessment Severe sepsis (SIRS: Tmax 102 -per patient, WBC 18.5. Lactate 2.6. Urinary source of infection.) UTI/pyelonephritis-Escherichia coli Mildly displaced intra-articular fracture base of 5th toe (proximal phalanx) LASHAUN (Cr 1.5, BUN 21 - on admission) Hypotension (96/57 on admission) Hyponatremia - POA 124 Normocytic anemia - POA (Hgb 10.1) Nausea - POA HTN Chronic bronchitis h/o GERD (s/p Shantel fundoplication) Plan Converted from Cipro to levofloxacillin for treatment of UTI/pyelonephritis. Escherichia coli on urine culture, sensitivities pending. Persistent hyponatremia, urine studies consistent with dehydration in conjunction with past hydrochlorothiazide use. Continue volume replacement with normal saline; repeat sodium pending currently. Mild orthostasis persists-continue volume replacement; multiple blood pressure medications on hold. Hemoglobin down slightly with hydration, continue to monitor. Creatinine unchanged, 1.5-fractional excretion consistent with dehydration. PT consult; x-ray of left foot reviewed-no indication of metatarsal fracture. DVT Prophylaxis: Lovenox Resuscitation Status: Full Code - Physician Narrative Narrative: Date: 07/01/17 Time: 1352 Hospital Course Summary Disclaimer: The visit summary below is not to be considered part of the above Progress Note. Hospital Course: 06/30/17 Admit, OBS Cipro IV given in ER. Repeat Cipro again this evening and then start Levaquin 750mg IV qd in the am for urinary coverage. Lactobacillus given her antibiotic tx and pt reports she usually has diarrhea if she doesn't take her probiotics routinely. NS 500cc bolus given in ER. Bolus another 500cc then run at 125cc's/hr for hydration, hypotension, sepsis and LASHAUN. Obtain renal CT to look for evidence of pyelonephritis. Ice to toe fracture as needed. Wear cast shoe when ambulating. Zofran prn nausea. Tylenol prn fever, pain. Hold Atacand, Coreg, HCTZ, spironolactone, potassium and Zocor d/t hypotension and hyponatremia. Monitor BP's closely. Care to return to Miriam Dale APRN at [facility] in on dismissal. 07/01/17 Converted from Cipro to levofloxacillin for treatment of UTI/pyelonephritis. Escherichia coli in urine culture, sensitivities pending. WBC slightly improved. Persistent hyponatremia, urine studies consistent with dehydration in conjunction with past hydrochlorothiazide use. Continue volume replacement with normal saline; repeat sodium pending currently. Mild orthostasis persists-continue volume replacement; multiple blood pressure medications on hold. Hemoglobin down slightly with hydration, continue to monitor. PT consult; x-ray of left foot reviewed-no indication of metatarsal fracture.
[2017-07-01 15:28] VITALS: BMI 28.3
[2017-07-01] MEDS: SODIUM CHLORIDE 1 GM TABLET PO SCH ×2 (17:02→20:18)
[2017-07-02] MEDS: ACETAMINOPHEN 325 MG TABLET PO PRN ×4 (02:03→20:59)
[2017-07-02] MEDS: OMEPRAZOLE 20 MG CAPSULE PO SCH (05:49)
[2017-07-02] MEDS: DICLOFENAC 1% TOP GEL 100gm TP PRN ×2 (05:50→20:59)
[2017-07-02] MEDS: AZELASTINE 0.1% NASAL SPRAY NAS PRN ×2 (05:50→20:59)
[2017-07-02] MEDS: NS 1,000 ML IV SCH ×2 (07:34→17:52)
[2017-07-02] MEDS: LACTOBACILLUS (15B cfu) CAPSULE PO SCH ×3 (09:20→17:51)
[2017-07-02] MEDS: CALCIUM CITRATE 315mg + VIT.D 250units TABLET PO SCH (09:20)
[2017-07-02] MEDS: OMEGA-3 ACID ESTERS 1 GM CAPSULE PO SCH (09:20)
[2017-07-02] MEDS: SODIUM CHLORIDE 1 GM TABLET PO SCH ×4 (09:21→21:01)
[2017-07-02] MEDS: CETIRIZINE 10 MG TABLET PO SCH (09:21)
[2017-07-02] MEDS: ENOXAPARIN 40 MG/0.4 ML INJECTION SQ SCH (09:22)
--- NOTE | 2017-07-02 11:43 | CT Scan Report ---
Indication: possible cuneiform fracture PROCEDURE: CT foot LT wo con: Encounter: Initial Comparison: Radiographs dated June 30, 2017 Technique: Axial CT images were performed through the left foot without intravenous contrast. Coronal and sagittal two-dimensional reformats. Automated Exposure Control and Iterative Reconstruction dose reducing techniques were utilized. Findings: The intra-articular fracture of the fifth toe proximal phalanx is confirmed. The medial cuneiform fracture is confirmed with mild comminution and minimal displacement. The second metatarsal base appears normally aligned. There is a nondisplaced intra-articular fracture of the fourth metatarsal base as well. Tiny nondisplaced fracture of the cuboid bone seen on coronal image #37. Tiny avulsion fracture noted from the distal aspect of the lateral cuneiform bone on coronal image #29. Probable tiny avulsion fracture from the third metatarsal base on coronal image #37 with a 2 mm bony fragment seen. Tiny 1 to 2 mm bony density inferior to the second metatarsal base best seen on axial image #53 and coronal image #27 could represent a tiny avulsion fracture as well. Small similar appearing avulsion fracture from the third metatarsal base seen on axial image #52. Tiny additional chip fracture involving the dorsal aspect of the third metatarsal base on axial image #50 and coronal image #23. Impression: Multiple midfoot fractures, the majority of which are tiny chip or avulsion fractures with minimal displacement. Fractures involve the second, third and fourth metatarsal bases along with the medial and lateral cuneiform and cuboid bones. Fifth toe proximal phalangeal fracture is also noted. There is no visible offset seen at the Lisfranc joint although a Lisfranc ligament injury cannot be entirely excluded on the basis of CT. .
--- NOTE | 2017-07-02 16:07 | Orthopedic Consult Note ---
Orthopedic Consultation HPI - Consultation Info Consult Date: 07/02/17 Attending Physician: Bettina Staples MD - History of Present Illness Mrs. Rios fell in her bedroom 06/30/17, states she felt lightheaded. Unsure how she landed and unsure if had LOC. States she got up and she had mild left foot pain, walked down the [place] and felt lightheaded again and fell. After second fall her she states she was unable to ambulate due to pain of left foot. She was taken by EMS to [facility]. She was found to have Urosepsis, hyponatremia (Na 124), and hypotensive. Xray of left foot showed nondisplaced proximal 5th phalangeal fracture. She was placed in post operative shoe. She continued to complain of left foot pain and swelling. Dr. Dexter was consulted today. CT scan of left foot obtained, showing Avulsion fractures with minimal displacement of 2nd-4th metatarsal bases, medial and lateral cuneiform and cuboid bones, 5th toe proximal phalangeal fracture. Patient reports right "foot" fracture 30 years ago. She is currently on Calcium and Vit D replacement for osteoporosis per patient. Had been on Fosamax in the past. Last Dexa scan reported year ago. Review of Systems - Constitutional Constitutional: Present: as per HPI - Cardiovascular Cardiovascular: Absent: chest pain, palpitations - Respiratory Respiratory: Absent: cough, dyspnea - Gastrointestinal Gastrointestinal: Absent: nausea, vomiting - Genitourinary Genitourinary General: Present: as per HPI - Musculoskeletal Musculoskeletal: Present: as per HPI, other (left foot pain, edema) [facility] Medical History (Last Updated 06/30/17 @ 14:59 by EDDIE Bettencourt) History of gastroesophageal reflux (GERD) (Resolved Medical) Chronic bronchitis (Chronic Medical) Essential hypertension (Chronic Medical) Surgical History: Tonsillectomy Family History: Family History (Last Updated 06/30/17 @ 15:34 by Bettina Staples MD) Mother Intracranial hemorrhage following injury High blood pressure Coronary artery disease Father Stroke CHF (congestive heart failure) - Social History Smoking status: Never smoker Substance use type: does not use Alcohol intake frequency: does not drink Housing: house Household members: spouse Current occupational status: retired Medications Home Medications Medication Instructions Recorded Confirmed Type Azelastine HCl [Astepro] 1 spray NS QID PRN 06/30/17 06/30/17 History CALCIUM CITRATE 315mg + D 2 tab PO DAILY 06/30/17 06/30/17 History [Citrical + D] Candesartan Cilexetil [Atacand] 32 mg PO DAILY 06/30/17 06/30/17 History Carvedilol Phosphate [Coreg Cr] 20 mg PO DAILY 06/30/17 06/30/17 History Cetirizine HCl [Zyrtec] 10 mg PO DAILY 06/30/17 06/30/17 History Cholecalciferol (Vitamin D3) 2,000 unit PO DAILY 06/30/17 06/30/17 History [Vitamin D3] Fluticasone HFA [Flovent Hfa 220 1 puff INH BID PRN 06/30/17 06/30/17 History mcg] Fluticasone Nasal [place] [Flonase] 1 spray EA NOSTRIL BID PRN 06/30/17 06/30/17 History LORazepam [Ativan] 1 mg PO PRN PRN 06/30/17 06/30/17 History Dexter-3/Dha/Epa/Fish Oil [Fish Oil 3,000 mg PO DAILY 06/30/17 06/30/17 History 1,000 mg Softgel] Omeprazole [Prilosec] 40 mg PO ACB 06/30/17 06/30/17 History Potassium Chloride 10 meq PO DAILY 06/30/17 06/30/17 History Simvastatin [Zocor] 20 mg PO HS 06/30/17 06/30/17 History Spironolactone [Aldactone] 25 mg PO DAILY 06/30/17 06/30/17 History Ubidecarenone [Co Q-10] 200 mg PO DAILY 06/30/17 06/30/17 History hydroCHLOROthiazide 25 mg PO DAILY 06/30/17 06/30/17 History [Hydrochlorothiazide] Allergies Allergy/AdvReac Type Severity Reaction Status Date / Time ampicillin Allergy Verified 06/30/17 10:35 cefadroxil [From Duricef] Allergy Verified 06/30/17 10:35 chloramphenicol Allergy Verified 06/30/17 10:35 [From Chloromycetin] Penicillins Allergy Verified 06/30/17 10:35 Sulfa (Sulfonamide Allergy Verified 06/30/17 10:35 Antibiotics) Exam - Constitutional Vital Signs: Temperature 97.6 F 07/02/17 15:44 Pulse Rate 71 07/02/17 15:44 Respiratory Rate 18 07/02/17 15:44 Blood Pressure 125/75 07/02/17 15:44 Pulse Oximetry 100 07/02/17 15:44 General: cooperative, no acute distress, well developed, well groomed Nutritional Appearance: average body habitus Orientation: alert, oriented x3 - LLE General: edema Skin: ecchymosis Range of Motion: painful ROM of dorsiflexion/extension of left foot Vascular: dorsalis pedis pulse within normal limits, capillary refill <2 seconds - Respiratory Respiratory Exam: non-labored - Cardiac Cardiovascular exam: pedal pulses intact - Labs Result Diagrams: 07/02/17 04:45 07/02/17 15:11 Abnormal lab results 07/02/17 07/02/17 Range/Units 04:45 04:45 RBC 3.00 L (4.00-5.20) M/MM3 Hgb 8.9 L (12-16) GM/DL Hct 26.1 L (36-46) % RDW Std Deviation 36.8 L (36.9-50.2) FL Neut % (Auto) 76.2 H (33-66) % Lymph % (Auto) 9.8 L (23-45) % Sunflower % (Auto) 13.0 H (0-9.0) % Lymph # (Auto) 0.9 L (1-4.8) T/MM3 Sunflower # (Auto) 1.2 H (0-0.8) T/MM3 Sodium 133 L D (134-144) MEQ/L Carbon Dioxide 19 L (22-30) MEQ/L Calculated Osmolality 258 L (261-280) MOSM/KG Calcium 8.0 L D (8.4-10.2) MG/DL Total Bilirubin < 0.10 L (0.20-1.30) MG/DL AST 42 H (14-36) U/L Total Protein 5.7 L (6.3-8.2) g/dL Albumin 3.0 L (3.5-5.0) g/dL H & H 07/01/17 07/02/17 Range/Units 04:05 04:45 Hgb 9.0 L 8.9 L (12-16) GM/DL Hct 26.2 L D 26.1 L (36-46) % Impression and Recommendation (1) Multiple fractures of left foot Current visit: Yes Status: Acute Will place patient in boot, WBAT. Follow up outpatient with Lynnette Lynne APRN in 2 weeks. If tolerating will obtain weight bearing views at that time to re-evaluate for possible Lisfranc injury. Hospital Course Summary Disclaimer: The visit summary below is not to be considered part of the above Progress Note. Hospital Course: 06/30/17 Admit, OBS Cipro IV given in ER. Repeat Cipro again this evening and then start Levaquin 750mg IV qd in the am for urinary coverage. Lactobacillus given her antibiotic tx and pt reports she usually has diarrhea if she doesn't take her probiotics routinely. NS 500cc bolus given in ER. Bolus another 500cc then run at 125cc's/hr for hydration, hypotension, sepsis and LASHAUN. Obtain renal CT to look for evidence of pyelonephritis. Ice to toe fracture as needed. Wear cast shoe when ambulating. Zofran prn nausea. Tylenol prn fever, pain. Hold Atacand, Coreg, HCTZ, spironolactone, potassium and Zocor d/t hypotension and hyponatremia. Monitor BP's closely. Care to return to Miriam Dale APRN at [facility] in on dismissal. 07/01/17 Converted from Cipro to levofloxacillin for treatment of UTI/pyelonephritis. Escherichia coli in urine culture, sensitivities pending. WBC slightly improved. Persistent hyponatremia, urine studies consistent with dehydration in conjunction with past hydrochlorothiazide use. Continue volume replacement with normal saline; repeat sodium pending currently. Mild orthostasis persists-continue volume replacement; multiple blood pressure medications on hold. Hemoglobin down slightly with hydration, continue to monitor. PT consult; x-ray of left foot reviewed-no indication of metatarsal fracture.
[2017-07-02] MEDS ORDERED: HYDROCODONE/APAP 5mg/325mg TABLET PO PRN (16:14)
--- NOTE | 2017-07-02 16:22 | Progress Note ---
- Date 07/02/17 Subjective: Courtney is seen today in follow up. She is feeling quite a bit better today. Did not sleep well last night, so she is tired. She has just been seen by Dr. Dexter, and she reports awareness of the findings of multiple bony fractures of the foot. She is going to be NWB in a Cam Walker and follow up with Dr. Dexter in two weeks. She reports that she feels a little better, but is leery about returning home today as her BP is lower than her normal. I d/w her plan of care, potential discharge tomorrow if everything looks ok. She is in agreement. She reports that she does have some pain, but mostly in her back. Her foot is only mildly tender at rest- she has been using Tylenol for pain typically. She does endorse it is more painful when she is OOB, and is a little more swollen with the SCDs in place. We discussed that she may need additional pain support when she returns home as she will be up a bit more than she is currently. She does not report any other acute concerns. Objective Vital signs: Temperature 97.6 F 07/02/17 15:44 Pulse Rate 71 07/02/17 15:44 Respiratory Rate 18 07/02/17 15:44 Blood Pressure 125/75 07/02/17 15:44 Pulse Oximetry 100 07/02/17 15:44 Height/Weight/BMI: Height 1.7 m Weight 81.3 kg Body Mass Index 28.3 - Constitutional Present: no acute distress, well nourished, well developed, cooperative - Routine HEENT Exam Head: Present: normocephalic, atraumatic Eye: Present: EOMI, PERRL ENT: Present: mucous membranes moist - Routine Respiratory Exam Present: CTA bilaterally, diminished air movement (Bases. No SOA or crackles observed ). Absent: rales, rhonchi, wheezes, crackles - Routine Cardiovascular Exam Present: RRR, S1, S2, no murmur - Routine Abdominal Exam Present: soft, normoactive bowel sounds, non distended, non tender - Routine Extremities Exam Present: edema (Left foot is a bit swollen with bruising. Neurovascular exam is intact. ), pulses intact, normal capillary refill, tenderness, joint swelling - Routine Musculoskeletal Exam Musculoskeletal: Present: moving extremities well - Routine Skin Exam Present: intact, dry, warm - Routine Neurological Exam Present: alert, oriented X3, moving all extremities - Routine Psychiatric Exam Present: normal affect, cooperative Results - Labs CBC & Chem 7: 07/02/17 04:45 07/02/17 15:11 - Imaging and Cardiology Left Foot CT Additional comments: Impression: Multiple midfoot fractures, the majority of which are tiny chip or avulsion fractures with minimal displacement. Fractures involve the second, third and fourth metatarsal bases along with the medial and lateral cuneiform and cuboid bones. Fifth toe proximal phalangeal fracture is also noted. There is no visible offset seen at the Lisfranc joint although a Lisfranc ligament injury cannot be entirely excluded on the basis of CT. . Assessment and Plan (1) Severe sepsis Current visit: Yes Status: Acute Assessment and Plan: Assessment Severe sepsis (SIRS: Tmax 102 -per patient, WBC 18.5. Lactate 2.6. Urinary source of infection.) UTI/pyelonephritis-Escherichia coli Mildly displaced intra-articular fracture base of 5th toe (proximal phalanx) LASHAUN (Cr 1.5, BUN 21 - on admission) Hypotension (96/57 on admission) Hyponatremia - POA 124 Normocytic anemia - POA (Hgb 10.1) Nausea - POA HTN Chronic bronchitis h/o GERD (s/p Shantel fundoplication) Plan 07/02/17 Pt improving. D/W Dr. Staples. Will change from IV Levaquin to Oral and monitor overnight. Continue gentle IVF and repeat labs in AM. Continue to hold HCTZ. Resume Coreg (IR due to no CR in supply). BP is trending up, but has remained fairly normal. Dr. Dexter has seen pt. Deon Hawley, ECHO, Follow up 2 weeks. I will order a low dose Jeffers if APAP is not effective due to multiple foot fx. DC the SCDs at this point due to increase in swelling, pt will remain on lovenox. Potentially home tomorrow. DVT Prophylaxis: Lovenox GI Prophylaxis: Omeprazole Resuscitation Status: Full Code - Physician Narrative Physician: Bettina Staples MD Narrative: Date: 07/02/17 Time: 1900 I have independently evaluated and examined this patient. I reviewed the chart, the patient's history, and the SUPERVISOR MICROWAVE/PA's documented findings as above. We discussed and formulated the assessment and plan as above with additions as below: Courtney complains of persistent pain in her mid and forefoot with any weightbearing; this precludes her from walking any distance. She's having no dysuria and is voiding without difficulty. She is urinating frequently due to her IV fluids and subsequently is getting up every 2 hours and sleep has been interrupted at regular intervals. NAD, alert No flank tenderness present today Mild bruising over dorsal surface of the left foot and there is tenderness to palpation over the metatarsal heads and tarsals on the left. Discussed with Dr. Dexter-CT foot obtained demonstrating multiple midfoot fractures (most are avulsion fractures) in addition to previously identified to fracture. Cam Walker ordered Pyelonephritis responding to treatment well-converted to oral antibiotics, renal function has improved and I believe she can be on daily Levaquin at this time. Sodium has improved progressively with hydration and discontinuation of hydrochlorothiazide. Hospital Course Summary Disclaimer: The visit summary below is not to be considered part of the above Progress Note. Hospital Course: 06/30/17 Admit, OBS Cipro IV given in ER. Repeat Cipro again this evening and then start Levaquin 750mg IV qd in the am for urinary coverage. Lactobacillus given her antibiotic tx and pt reports she usually has diarrhea if she doesn't take her probiotics routinely. NS 500cc bolus given in ER. Bolus another 500cc then run at 125cc's/hr for hydration, hypotension, sepsis and LASHAUN. Obtain renal CT to look for evidence of pyelonephritis. Ice to toe fracture as needed. Wear cast shoe when ambulating. Zofran prn nausea. Tylenol prn fever, pain. Hold Atacand, Coreg, HCTZ, spironolactone, potassium and Zocor d/t hypotension and hyponatremia. Monitor BP's closely. Care to return to Miriam Dale APRN at [facility] in on dismissal. 07/01/17 Converted from Cipro to levofloxacillin for treatment of UTI/pyelonephritis. Escherichia coli in urine culture, sensitivities pending. WBC slightly improved. Persistent hyponatremia, urine studies consistent with dehydration in conjunction with past hydrochlorothiazide use. Continue volume replacement with normal saline; repeat sodium pending currently. Mild orthostasis persists-continue volume replacement; multiple blood pressure medications on hold. Hemoglobin down slightly with hydration, continue to monitor. PT consult; x-ray of left foot reviewed-no indication of metatarsal fracture. 07/02/17 Pt improving. D/W Dr. Staples. Will change from IV Levaquin to Oral and monitor overnight. Continue gentle IVF and repeat labs in AM. Continue to hold HCTZ. Resume Coreg (IR due to no CR in supply). BP is trending up, but has remained fairly normal. Dr. Dexter has seen pt. Deon Hawley, NWLazaro, Follow up 2 weeks. I will order a low dose Jeffers if APAP is not effective due to multiple foot fx. DC the SCDs at this point due to increase in swelling, pt will remain on lovenox. Potentially home tomorrow.
[2017-07-02] MEDS: CARVEDILOL 6.25 MG TABLET PO SCH (17:51)
[2017-07-02] MEDS ORDERED: CARVEDILOL PHOSPHATE 20 MG PO SCH (21:00)
[2017-07-02 22:41] VITALS: O2SAT 96
[2017-07-03] MEDS: ACETAMINOPHEN 325 MG TABLET PO PRN (03:05)
[2017-07-03] MEDS: NS 1,000 ML IV SCH (03:43)
[2017-07-03] MEDS: OMEPRAZOLE 20 MG CAPSULE PO SCH (06:15)
[2017-07-03] MEDS ORDERED: LEVOFLOXACIN 500 MG TABLET PO SCH (06:30)
[2017-07-03 08:19] VITALS: BP 125/76; PULSE 64; RESP 12; TEMP 98.9
[2017-07-03] MEDS: OMEGA-3 ACID ESTERS 1 GM CAPSULE PO SCH (08:27)
[2017-07-03] MEDS: SODIUM CHLORIDE 1 GM TABLET PO SCH (08:27)
[2017-07-03] MEDS: CARVEDILOL 6.25 MG TABLET PO SCH (08:27)
[2017-07-03] MEDS: CETIRIZINE 10 MG TABLET PO SCH (08:27)
[2017-07-03] MEDS: LACTOBACILLUS (15B cfu) CAPSULE PO SCH ×2 (08:27→12:15)
[2017-07-03] MEDS: ENOXAPARIN 40 MG/0.4 ML INJECTION SQ SCH (08:28)
[2017-07-03] MEDS ORDERED: LEVOFLOXACIN PB 750 MG/150 ML BAG IV SCH (09:00)
[2017-07-03] MEDS ORDERED: CALCIUM 600 + VIT D 400 TABLET PO SCH (09:00)
--- NOTE | 2017-07-03 11:01 | Discharge Summary ---
Discharge Information Date of admission: 06/30/17 15:50 Anticipated date of discharge: 07/03/17 Attending Physician: Bettina Staples MD Primary care physician: Miriam Dale APRN Consults: Consulting Provider: Yayo Dexter Reason For Exam: left foot pain/fall - Discharge Diagnosis (1) Severe sepsis Status: Acute Severe sepsis (SIRS: Tmax 102 -per patient, WBC 18.5. Lactate 2.6. Urinary source of infection.) UTI/pyelonephritis-Escherichia coli Mildly displaced intra-articular fracture base of 5th toe (proximal phalanx) LASHAUN (Cr 1.5, BUN 21 - on admission) Hypotension (96/57 on admission) Hyponatremia - POA 124 Normocytic anemia - POA (Hgb 10.1) Nausea - POA HTN Chronic bronchitis h/o GERD (s/p Shantel fundoplication) - Procedures Procedures: None - Laboratory Labs: 07/03/17 04:12 07/03/17 04:12 - Microbiology Microbiology 06/30/17 11:13 Peripheral/Iv Start Blood Culture - Preliminary No Growth After 2 Days 06/30/17 12:51 Peripheral/Iv Start Blood Culture - Preliminary No Growth After 2 Days 06/30/17 12:04 Urine, Voided (Cc/notcc) Urine Culture - Final Escherichia coli- Pansensitive - Radiology Radiology: CXR IMPRESSION: No acute cardiopulmonary abnormality. . ----- Renal CT Impression: Asymmetric left-sided perinephric and periureteral stranding compatible with pyelonephritis. . ----- Left foot XR Impression: Closed posttraumatic fracture of the fifth toe proximal phalanx. . ----- Left foot CT Impression: Multiple midfoot fractures, the majority of which are tiny chip or avulsion fractures with minimal displacement. Fractures involve the second, third and fourth metatarsal bases along with the medial and lateral cuneiform and cuboid bones. Fifth toe proximal phalangeal fracture is also noted. There is no visible offset seen at the Lisfranc joint although a Lisfranc ligament injury cannot be entirely excluded on the basis of CT. . History of Present Illness HPI: Patient is a 62 yo female who presents to ER today after sustaining 2 falls from being lightheaded and hurting her L foot. She states she feels like she has "the flu." Sxs started 2 days ago with aching and fever and nausea. She's had no vomiting or diarrhea. On admission to ER, she was found to have a WBC of 18.5, lactate of 2.6 and procal of 8. CXR was neg. UA showed 2+ leuks and 3 + bacteria. Xray of the L foot also showed an intra-articular fracture for which she was placed in a cast shoe in ER. She felt like she was just dehydrated due to the "flu" and taking 2 diuretics. She has h/o UTI's in past, but never pyelonephritis or urosepsis. She hasn't been treated with antibiotics in the past 3+ mos. THinks she may have been on Zithromax or Levquin in Dec for her chronic bronchitis. She's had no dysuria, hematuria or frequency. She does note she had some hesitancy with starting her urine stream. Last BM was this morning. She states she is hungry now and would like to eat. Last Tylenol at 1230am. Mrs. Rios was seen with her daughter at bedside. She describes having the "flu " for about 3 days with generalized muscle aches and temperatures up to 102. There was no accompanying dyspnea, cough, nausea/vomiting, or diarrhea. She describes minor discomfort urinating but no frequency or urgency. She has had progressive lightheadedness resulting in fall which triggered ER evaluation. Patient had some difficulty providing history when I evaluated her and daughter indicated that she currently is having trouble tracking which was not clear earlier today. Sodium 124-patient reports chronic difficulty managing sodium and that she takes sodium tablets in conjunction with HCTZ. Also reports difficulty managing her potassium at times. She is on multiple medications for management of her blood pressure. She was admitted for further evaluation and treatment of her acute febrile illness. Objective Vital signs: Temperature 98.9 F 07/03/17 07:00 Pulse Rate 64 07/03/17 07:00 Respiratory Rate 12 07/03/17 07:00 Blood Pressure 125/76 07/03/17 07:00 Pulse Oximetry 96 07/03/17 07:00 Height/Weight/BMI: Height 1.7 m Weight 81.2 kg Body Mass Index 28.3 - Constitutional Present: no acute distress, average body habitus, cooperative, other (anxious, irritable) - Routine HEENT Exam Head: Present: normocephalic, atraumatic Eye: Present: EOMI, PERRL ENT: Present: mucous membranes moist - Routine Respiratory Exam Present: dyspnea (very mild- patient states she is "SOA from all the fluid"), CTA bilaterally. Absent: rales, rhonchi, wheezes, crackles - Routine Cardiovascular Exam Present: RRR, S1, S2, no murmur - Routine Abdominal Exam Present: soft, normoactive bowel sounds, non distended, non tender - Routine Extremities Exam Present: no edema, pulses intact, normal capillary refill, tenderness (Left foot ). Absent: cyanosis, clubbing - Routine Musculoskeletal Exam Musculoskeletal: Present: moving extremities well, other (Left foot is warm, good pulses. Cam Walker in place. No other edema is evident upon exam.) - Routine Skin Exam Present: intact, dry, warm. Absent: cyanosis, pallor - Routine Neurological Exam Present: alert, oriented X3, moving all extremities - Routine Psychiatric Exam Present: anxious. Absent: good insight (She remains very focused on her BP) Hospital Course This is a general summary of the patient's hospital course. For more details refer to the complete medical record. Hospital course: 06/30/17 Admit, OBS -->Converted to Inpt. Cipro IV given in ER. Repeat Cipro again this evening and then start Levaquin 750mg IV qd in the am for urinary coverage. Lactobacillus given her antibiotic tx and pt reports she usually has diarrhea if she doesn't take her probiotics routinely. NS 500cc bolus given in ER. Bolus another 500cc then run at 125cc's/hr for hydration, hypotension, sepsis and LASHAUN. Obtain renal CT to look for evidence of pyelonephritis. Ice to toe fracture as needed. Wear cast shoe when ambulating. Zofran prn nausea. Tylenol prn fever, pain. Hold Atacand, Coreg, HCTZ, spironolactone, potassium and Zocor d/t hypotension and hyponatremia. Monitor BP's closely. Care to return to Miriam Dale APRN at [facility] in on dismissal. 07/01/17 Converted from Cipro to levofloxacin for treatment of UTI/pyelonephritis. Escherichia coli in urine culture, sensitivities pending. WBC slightly improved. Persistent hyponatremia, urine studies consistent with dehydration in conjunction with past hydrochlorothiazide use. Continue volume replacement with normal saline; repeat sodium pending currently. Mild orthostasis persists-continue volume replacement; multiple blood pressure medications on hold. Hemoglobin down slightly with hydration, continue to monitor. PT consult; x-ray of left foot reviewed-no indication of metatarsal fracture. 07/02/17 Pt improving. Will change from IV Levaquin to Oral and monitor overnight. Continue gentle IVF and repeat labs in AM. Continue to hold HCTZ. Resume Coreg. BP is trending up, but has remained fairly normal/not tachycardic. Multiple small fractures noted on CT, not visible on XR. Dr. Dexter has seen pt. Deon Hawley, NWLazaro, Follow up 2 weeks. I will order a low dose Buffalo if APAP is not effective due to multiple foot fx. DC the SCDs at this point due to increase in swelling, pt will remain on lovenox. Potentially home tomorrow. 07/03/17 *Courtney is doing well in regards to the pyelonephritis. Levaquin d#4- plan to treat for 14 days total given severity of symptoms. She will need to follow up in a week, which I have discussed with her. *She does have the Cam Walker in place. States pain is well controlled on Tylenol, but she is agreeable to a small amount of Buffalo "Just in Case." To follow up with Dr. Dexter 2 weeks. *She reports that she is SOA, which she attributes to the IVF. She denies any personal history of CHF or CAD, just family history. Despite this, her exam does not demonstrate any abnormal breath sounds, her weight has actually been trending down, and she is not edematous other than at fracture site. Her O2 sats look good (98%), and she has been anticoagulated since her admission for DVT px. She also remains very hyper-focused on restarting her BP medications despite normotensive vitals. I have discussed with her that over-medicating can lead to renal dysfunction, falls, and further injury. In addition, the HCTZ is likely a major cause of her recurrent hyponatremia/ hypokalemia. She is very irritable and expresses that she "doesn't want heart disease either. " I am concerned that she will self-resume medications upon discharge. Will need close follow up and likely a significant decrease in medications. Plan to dismiss home today. Again, I have instructed her to see PCP in 1 week, but she reports that she has a F/U scheduled in July. Would certainly recommend she be seen before that and have labs rechecked. Time spent with patient: greater than 35 minutes (patient/discharge care coordination) Resuscitation Status: Full Code Discharge Plan - Discharge Disposition Discharge Date: 07/03/17 Disposition: Discharged Home, Self-Care *Condition: Stable Reason For Visit (Visit label in EMR): UTI - Discharge Medications *Discharge Medications: New Acetaminophen [Tylenol] 325 - 650 mg PO Q5H PRN tab PRN Reason: Discomfort Acidoph/L.bulg/Bif.b/S.thermop [Bacid Caplet] 2 cap PO BIDWM 14 Days #60 tab Hydrocodone/APAP 5/325 [Buffalo 5/325] 1 tab PO Q6H PRN #10 tab PRN Reason: Pain Levofloxacin [Levaquin] 500 mg PO ACB #10 tab Continue Fluticasone HFA [Flovent Hfa 220 mcg] 1 puff INH BID PRN PRN Reason: Prn Orders Azelastine HCl [Astepro] 1 spray NS QID PRN PRN Reason: Prn Orders Fluticasone Nasal Nye [Flonase] 1 spray EA NOSTRIL BID PRN PRN Reason: Prn Orders Cetirizine HCl [Zyrtec] 10 mg PO DAILY [place]-3/Dha/Epa/Fish Oil [Fish Oil 1,000 mg Softgel] 3,000 mg PO DAILY Cholecalciferol (Vitamin D3) [Vitamin D3] 2,000 unit PO DAILY Omeprazole [Prilosec] 40 mg PO ACB Simvastatin [Zocor] 20 mg PO HS Carvedilol Phosphate [Coreg Cr] 20 mg PO DAILY Ubidecarenone [Co Q-10] 200 mg PO DAILY LORazepam [Ativan] 1 mg PO PRN PRN #0 PRN Reason: Anxiety CALCIUM CITRATE 315mg + D [Citrical + D] 2 tab PO DAILY Discontinued Potassium Chloride 10 meq PO DAILY Candesartan Cilexetil [Atacand] 32 mg PO DAILY hydroCHLOROthiazide [Hydrochlorothiazide] 25 mg PO DAILY Spironolactone [Aldactone] 25 mg PO DAILY - Discharge Packet/Instructions *Diet: Heart Healthy *Activity: Non-weight bearing left foot. *Pain Management/Treatment: May take Tylenol for mild-moderate pain. Take Buffalo sparingly for moderate-severe pain. No Lorazepam with Buffalo. *Wound Care: N/A *Expected Signs/Symptoms: Pain of foot. Occasional low grade fever. Fatigue. *Notify Physician if: Fever over 101. Increasing pain that does not improve with pain medication. Nausea, Vomiting. Swelling. Any other concerns. *During Business Hours Contact: Contact Miriam's office *After Business Hours Contact: and ask for Physician network solutions architect *Pending Lab/Results: Follow up w/your PCP (Please set up a follow up appointment with Miriam Dale APRN to be seen in the next week.) - Referrals/Follow Up *Referrals/Follow Up: Kurtis López APRN [Advanced Practice Nurse] - 07/10/17 9:00 am (OFFICE NUMBER FOR [facility] [phone]) - Patient Handouts Patient Handouts: Urinary Tract Infection in Women (GEN) - Dismissal Complete Discharge Instructions are:: Complete Physician Narrative - Narrative Physician: Bettina Staples MD Attestation Narrative: Date: 07/03/17 Time: 2004 I have independently evaluated and examined this patient. I reviewed the chart, the patient's history, and the FLAP LINING BINDER/PA's documented findings as above. We discussed and formulated the assessment and plan as above with additions as below: Mrs. Rios was seen late morning at which time she described minor pain in her foot, voiding well, and no dyspnea at the time I saw her. She again expressed concern about when she should restart her other blood pressure medications and I indicated that if systolic blood pressure is consistently above 140 at a camp to be resumed but that I do not believe she should resume spironolactone until electrolytes and blood pressure are reevaluated in the office. Additionally I told her that since she will be off hydrochlorothiazide I don't believe she will need to take additional potassium supplementation at this time. NAD, alert, no costovertebral angle tenderness present, breath sounds clear. Stable for discharge. I strongly recommended that the patient remain off HCTZ indefinitely, if alternate diuretic is needed spironolactone or furosemide can be utilized and avoid risk of hyponatremia. I recommended follow-up in approximately 1-1/2 weeks so urine can be reassessed as she completes antibiotics.
== END 2017-07-03 12:30 | disposition home or self-care (01) | DRG 872 ==
LOC: ED 10:14 → MED 10:14
PROVIDERS: ADMIT Internal Medicine; ATTEND Internal Medicine